=== PATIENT | female | born 2000 | race African-American/Black ===

== ENCOUNTER 2019-12-12 09:47 | Emergency (ER) | payer OTHER ==
[~2019-12-12] VITALS: Ht 170.2 cm; Wt 56.0 kg
[2019-12-12 10:19] VITALS: BP 109/66
== END 2019-12-12 12:53 | disposition home or self-care (01) ==
LOC: ER 09:47
DX: S39.012A Strain of muscle, fascia and tendon of lower back, initial encounter (principal); V49.40XA Driver injured in collision with unspecified motor vehicles in traffic accident, initial encounter; Y93.89 Activity, other specified; Y92.410 Unspecified street and highway as the place of occurrence of the external cause
CPT/HCPCS: 99283